=== PATIENT | male | born 1965 | race Two or more races ===

== ENCOUNTER 2019-02-21 12:59 | Emergency (ER) | payer MEDICAID ==
[~2019-02-21] VITALS: Ht 160 cm; Wt 81.0 kg
[2019-02-21 13:06] VITALS: Ht 160 cm; Wt 81.0 kg
[2019-02-21 16:17] VITALS: BP 121/90
== END 2019-02-21 16:17 | disposition home or self-care (01) ==
LOC: ED 12:59
DX: M25.561 Pain in right knee (principal); I10 Essential (primary) hypertension